=== PATIENT | female | born 1970 | race Caucasian/White ===

== ENCOUNTER 2017-04-26 12:10 | Emergency (ER) | payer OTHER ==
[2017-04-26] MEDS ORDERED: AMOX/CLAV 875 MG/125 MG TABLET PO STA (14:13)
[2017-04-26] MEDS ORDERED: KETOROLAC 60 MG/2 ML VIAL IM STA (14:13)
[2017-04-26] MEDS ORDERED: ONDANSETRON ODT 4 MG TABLET TL STA (14:13)
[2017-04-26] MEDS ORDERED: DEXAMETHASONE 10 MG/ML VIAL PO STA (14:13)
--- NOTE | 2017-04-26 14:15 | ED Physician Documentation ---
PD HPI URI - Stated complaint Stated Complaint: FLU LIKE SX - Chief complaint Chief Complaint: Heent - History obtained from History obtained from: Patient, Family - History of Present Illness Timing - onset: How many weeks ago (3) Timing duration: Weeks (3) Timing details: Gradual onset Pain level max: 8 Pain level now: 8 Associated symptoms: Nasal congestion, Rhinorrhea, Sinus pain. No: Fever, Chills, Sore throat, Dry cough, Dyspnea Contributing factors: Sick contact Improves by: Nothing Worsened by: Other (eating, drinking) Similar symptoms before: Diagnosis (sinus infection) Recently seen: Not recently seen Review of Systems Constitutional: denies: Fever, Chills Ears: denies: Ear pain Nose: reports: Rhinorrhea / runny nose, Congestion Throat: denies: Sore throat Cardiac: denies: Chest pain / pressure Respiratory: denies: Cough GI: reports: Nausea, Vomiting. denies: Diarrhea Skin: denies: Rash Musculoskeletal: denies: Neck pain, Back pain Neurologic: denies: Focal weakness, Numbness, Seizure PD PAST MEDICAL HISTORY - Past Medical History Past Medical History: Yes Cardiovascular: None Respiratory: None Neuro: None Endocrine/Autoimmune: None GI: GERD [employer] OPERATOR: None : None HEENT: None Psych: None Musculoskeletal: None Derm: None - Past Surgical History Past Surgical History: No - Present Medications Home Medications: Ambulatory Orders Medication Instructions Recorded Confirmed Ranitidine HCl [Zantac] 150 mg PO DAILY 04/06/14 04/06/14 Amox/Clav 875/125 [Augmentin] 1 each PO Q12H #20 tablet 04/26/17 Hydrocodone/Acetaminophen 1 - 2 each PO Q6H PRN #14 tablet 04/26/17 [Hydrocodon-Acetaminophen 5-325] Ondansetron Odt [Zofran] 4 mg TL Q6H PRN #10 tablet 04/26/17 - Allergies Allergies/Adverse Reactions: Allergies Allergy/AdvReac Type Severity Reaction Status Date / Time No Known Drug Allergies Allergy Verified 04/26/17 12:19 - Social History Does the pt smoke?: No Smoking Status: Never smoker Does the pt drink ETOH?: No Does the pt have substance abuse?: No - Immunizations Immunizations are current?: Yes - POLST Patient has POLST: No PD ED PE NORMAL - Vitals Vital signs reviewed: Yes - General General: Alert and oriented X 3, No acute distress - HEENT HEENT: PERRL, Ears normal, Moist mucous membranes, Pharynx benign, Dentition benign (No evidence of dental infection), Other (TTP R maxillary sinus) - Neck Neck: Supple, no meningeal sign - Cardiac Cardiac: RRR, Strong equal pulses - Respiratory Respiratory: No respiratory distress, Clear bilaterally - Abdomen Abdomen: Soft, Non tender, Non distended - Derm Derm: Warm and dry, No rash - Neuro Neuro: Alert and oriented X 3 - Psych Psych: Normal mood, Normal affect Results - Vitals Vitals: Vital Signs - 24 hr 04/26/17 04/26/17 12:14 15:11 Temperature 36.8 C Heart Rate 96 56 L Respiratory 20 20 Rate Blood Pressure 172/114 H 155/100 H O2 Saturation 98 99 Oxygen O2 Source Room air PD MEDICAL DECISION MAKING - ED course Complexity details: re-evaluated patient, considered differential, d/w patient ED course: Patient is a 46-year-old female who presents to the emergency department with what appears to be sinusitis. She is well-appearing, nontoxic. Tolerating p.o. without difficulty after Zofran. Pain well controlled. Will place on antibiotics for home and follow-up closely with her doctor. Patient counseled regarding signs and symptoms for which I believe and urgent re-evaluation would be necessary. Patient with good understanding of and agreement to plan and is comfortable going home at this time This document was made in part using voice recognition software. While efforts are made to proofread this document, sound alike and grammatical errors may occur. Departure - Departure Disposition: 01 Home, Self Care Clinical Impression: Sinusitis Qualifiers: Sinusitis location: unspecified location Chronicity: acute Recurrence: non- recurrent Qualified Code(s): J01.90 - Acute sinusitis, unspecified Condition: Good Instructions: ED Sinusitis Abx Tx Follow-Up: AURA RODGERS [Primary Care Provider] - Within 1 week Prescriptions: Amox/Clav 875/125 [Augmentin] 1 each PO Q12H #20 tablet Hydrocodone/Acetaminophen [Hydrocodon-Acetaminophen 5-325] 1 - 2 each PO Q6H PRN #14 tablet PRN Reason: pain Ondansetron Odt [Zofran] 4 mg TL Q6H PRN #10 tablet PRN Reason: Nausea / Vomiting Comments: Take all antibiotics until gone. Return if you worsen. Do not drink alcohol or drive while on narcotic pain medicine. Note that many narcotic pain relievers also contain tylenol/acetaminophen. Please ensure that your total dose of acetaminophen from all sources does not exceed 3 grams (3000mg) per day. You may constipated on this medication, take a stool softener such as "Colace" twice a day while you are on it. Also recommend a [id number] laxative such as senna or MiraLAX any day that you do not have a bowel movement. If you received narcotic pain medication in the emergency department, do not drive or operate machinery for the next 24 hours. Discharge Date/Time: 04/26/17 15:14
[2017-04-26] MEDS ORDERED: CHERRY SYRUP 10 ML UDC PO ONE (14:44)
[2017-04-26 15:11] VITALS: BP 155/100
== END 2017-04-26 15:14 | disposition home or self-care (01) ==
LOC: ED 12:10
DX: J01.90 Acute sinusitis, unspecified (principal)
CPT/HCPCS: 96372; 99283; A9270; Q0162